=== PATIENT | female | born 1960 | race Native Hawaiian/Other Pacific Islander ===

== ENCOUNTER 2018-02-17 16:32 | Outpatient (CLI) | payer BC | END 2018-02-17 21:27 | disposition home or self-care (01) | LOC: US 16:32 | DX: M25.562 Pain in left knee (principal); M79.605 Pain in left leg ==

== ENCOUNTER 2018-02-18 10:54 | Outpatient (CLI) | payer BC | END 2018-02-18 19:56 | disposition home or self-care (01) | LOC: US 10:54 | DX: M25.562 Pain in left knee (principal); M79.605 Pain in left leg ==

== ENCOUNTER 2018-03-20 08:50 | Outpatient (CLI) | payer BC ==
[2018-03-20 09:10] LABS: PLATELET COUNT 174 K/uL (152-353)
[2018-03-20 09:29] LABS: POTASSIUM 4.1 mmol/L (3.6-5.2)
== END 2018-03-20 20:48 | disposition home or self-care (01) ==
LOC: LABW 08:50
PROVIDERS: Internal Medicine
DX: E66.9 Obesity, unspecified (principal)
CPT/HCPCS: 36415; 80053; 80061; 81000; 84439; 84443; 85027

== ENCOUNTER 2019-02-18 08:20 | Day surgery (SDC) | payer OTHER ==
[2019-02-18 09:31] LABS: POTASSIUM 3.9 mmol/L (3.6-5.2)
[2019-02-18 09:39] LABS: PLATELET COUNT 142 K/uL (152-353)
== END 2019-02-18 14:07 | disposition home or self-care (01) ==
LOC: OR 08:20
PROVIDERS: Internal Medicine
PROC: 0DJD8ZZ Inspection of Lower Intestinal Tract, Via Natural or Artificial Opening Endoscopic (ICD-10-PCS; principal; 2019-02-18)
DX: K64.8 Other hemorrhoids (principal); Z12.11 Encounter for screening for malignant neoplasm of colon
CPT/HCPCS: 80053; 85027; J2001; J2250; J2405; J2704; J2765

== ENCOUNTER 2020-02-02 08:55 | Outpatient (CLI) | payer OTHER | END 2020-02-02 23:21 | disposition home or self-care (01) | LOC: RAD 08:55 | DX: Z13.820 Encounter for screening for osteoporosis (principal); N95.8 Other specified menopausal and perimenopausal disorders ==

== ENCOUNTER 2020-07-26 09:52 | Outpatient (CLI) | payer OTHER ==
[2020-07-26 10:24] LABS: PLATELET COUNT 163 K/uL (152-353)
== END 2020-07-26 21:21 | disposition home or self-care (01) ==
LOC: LABW 09:52
PROVIDERS: ATTEND Nurse Practitioner Family
DX: L65.9 Nonscarring hair loss, unspecified (principal); Z79.899 Other long term (current) drug therapy
CPT/HCPCS: 36415; 80053; 82306; 82626; 82728; 83540; 83550; 84270; 84402; 84403; 84439; 84443; 85027; 86038; 86376

== ENCOUNTER 2021-04-17 09:47 | Outpatient (CLI) | payer BC | END 2021-04-17 19:11 | disposition home or self-care (01) | LOC: RAD 09:47 | PROVIDERS: ATTEND Internal Medicine | DX: M25.512 Pain in left shoulder (principal); W19.XXXA Unspecified fall, initial encounter ==